=== PATIENT | female | born 1990 | race African-American/Black ===

== ENCOUNTER 2018-02-05 11:28 | Emergency (ER) | payer SELFPAY ==
[~2018-02-05] VITALS: Ht 162.6 cm; Wt 72.6 kg
[2018-02-05 11:55] VITALS: BP 124/80
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
[2018-02-05] MEDS ORDERED: KEFLEX500 MG ORAL (12:50)
[2018-02-05] MEDS ORDERED: IBUPROFEN600 MG ORAL (12:50)
[2018-02-05 13:09] VITALS: BP 124/80
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
== END 2018-02-05 13:09 | disposition home or self-care (01) ==
LOC: EMR 12:55
DX: S01.81XA Laceration without foreign body of other part of head, initial encounter (principal); S00.11XA Contusion of right eyelid and periocular area, initial encounter; Y04.2XXA Assault by strike against or bumped into by another person, initial encounter; Y92.9 Unspecified place or not applicable
CPT/HCPCS: 70450; 81025; 99284